=== PATIENT | male | born 1970 | race Caucasian/White ===

== ENCOUNTER 2024-09-21 21:29 | Inpatient (IN) | payer MEDICAID ==
[~2024-09-21] VITALS: Ht 180.3 cm; Wt 104.5 kg
[2024-09-21 21:55] LABS: BASOPHILS % (AUTO) 0.6 % (0-1); EOSINOPHILS % (AUTO) 0 % (0-6); HEMATOCRIT 42.5 % (42.0-52.0); HEMOGLOBIN 14.9 g/dl (14.0-17.9); LYMPHOCYTES # (AUTO) 0.8 X10'3 (1.1-4.8); LYMPHOCYTES % (AUTO) 14.5 % (21-51); MEAN CORPUSCULAR HEMOGLOBIN 29.6 PG (27.0-31.0); MEAN CORPUSCULAR VOLUME 84.6 FL (78-98); MONOCYTES # (AUTO) 0.7 X10'3 (0-0.9); NEUTROPHILS # (AUTO) 4.2 X10'3 (1.8-7.7); NEUTROPHILS % (AUTO) 72.9 % (42-75); PLATELET COUNT 207 X10'3 (140-440); RED BLOOD COUNT 5.03 X10'6 (4.70-6.10); RED CELL DISTRIBUTION WIDTH 13.7 % (11.5-14.5); WHITE BLOOD COUNT 5.8 X10'3 (4.5-11.0)
[2024-09-21] MEDS: ipratropium/albuterol 3ml nebule NEB ONE (22:12)
[2024-09-21 22:14] VITALS: PULSE 117; RESP 20; O2SAT 93
[2024-09-21 22:15] LABS: ALANINE AMINOTRANSFERASE 42 U/L (12-78); ALBUMIN 3.9 G/DL (3.4-5.0); ALBUMIN/GLOBULIN RATIO 0.8 (1.1-1.5); ALKALINE PHOSPHATASE 71 IU/L (46-116); ANION GAP 13 (8-16); ASPARTATE AMINO TRANSFERASE 42 U/L (10-37); BILIRUBIN,TOTAL 1.2 MG/DL (0.1-1.0); BLOOD UREA NITROGEN 14 MG/DL (7-18); BUN/CREATININE RATIO 13.1 (10.0-20.0); CHLORIDE 101 MMOL/L (99-107); CREATININE 1.07 MG/DL (0.60-1.10); GLUCOSE 130 MG/DL (70-104); POTASSIUM 3.4 MMOL/L (3.5-5.1); SODIUM 139 MMOL/L (135-145); TOTAL CARBON DIOXIDE 25.1 MMOL/L (24-32); TOTAL PROTEIN 8.9 G/DL (6.4-8.2); eCRCL 83 ML/MIN; eGFR 72 ML/MIN
[2024-09-21] MEDS ORDERED: ondansetron 4mg rapidly disintigrating tab PO ONE (22:15)
[2024-09-21 22:21] VITALS: PULSE 121; RESP 20; O2SAT 94
[2024-09-21 22:21] LABS: PRO BRAIN NATRIURETIC PEPTIDE 38 PG/ML (0-125)
[2024-09-21] MEDS ORDERED: proCHLORperazine 10 MG/2 ml inj IV ONE (23:20)
[2024-09-21] MEDS ORDERED: ONDA-245 PO (23:40)
[2024-09-21] MEDS: acetaminophen 325mg tablet PO ONE (23:58)
[2024-09-21] MEDS: ondansetron/PF 4mg/2ml inj IV ONE (23:59)
[2024-09-21] MEDS: normal saline 1000ml 1,000 ML IV ONE (23:59)
[2024-09-21] MEDS: ketorolac trometh 15mg/ml vial 15 MG/ML ML IV ONE (23:59)
[2024-09-22] MEDS ORDERED: albuterol 2.5 MG/3 ML nebule NEB PRN (02:10)
[2024-09-22] MEDS ORDERED: mag hydrox/Alum hydrox/simeth 30ml oral suspension PO PRN (02:10)
[2024-09-22] MEDS ORDERED: magnesium Cl slow-release 64mg tablet PO PRN ×2 (02:10→04:45)
[2024-09-22] MEDS ORDERED: magnesium sulf-water 4G/100mL 100 ML IV PRN ×2 (02:10→04:45)
[2024-09-22] MEDS ORDERED: magnesium hydroxide 30ml (MOM) UD suspension PO PRN (02:10)
[2024-09-22] MEDS ORDERED: acetaminophen 325mg tablet PO PRN (02:10)
[2024-09-22] MEDS ORDERED: magnesium sulf-water 2g/50mL 50 ML IV PRN ×2 (02:10→04:45)
[2024-09-22] MEDS ORDERED: potassium Cl 20 mEq SR tablet PO PRN ×3 (02:10→04:45)
[2024-09-22] MEDS ORDERED: potassium Cl 40MEQ/1/2NS 520ml 520 ML IV PRN ×2 (02:10→04:45)
[2024-09-22] MEDS ORDERED: NO HOME MEDS (02:14)
[2024-09-22] MEDS: normal saline 1000ml 1,000 ML IV SCH (02:54)
[2024-09-22] MEDS: CefTRIAXone/D5W-Rocephin 1gm 50 ML IV SCH (02:56)
[2024-09-22 03:11] LABS: BILIRUBIN,URINE SMALL (Neg); CLARITY,URINE CLEAR (Clear); COLOR,URINE YELLOW (Yellow); GLUCOSE, URINE NEGATIVE (Neg); KETONES,URINE 40 mg/dl (Neg); LEUKOCYTE ESTERASE ,URINE NEGATIVE (Neg); NITRITES, URINE NEGATIVE (Neg); OCCULT BLOOD,URINE NEGATIVE (Neg); PROTEIN,URINE >=300 mg/dl (Neg)
[2024-09-22 03:19] LABS: UA COLLECTION TYPE VOIDED
[2024-09-22 03:20] LABS: BACTERIA,URINE 1+ /HPF (Neg); RBC,URINE NONE SEEN /HPF (0-2); SQUAMOUS EPITHELIAL CELL,UR FEW /LPF (FEW); TRANSITIONAL EPI CELLS,URINE MANY /HPF; WBC,URINE 0-4 /HPF (0-4)
[2024-09-22 04:01] LABS: HEMOGLOBIN A1C 6.1 % (4.5-6.2)
[2024-09-22 04:09] LABS: MAGNESIUM 1.8 MG/DL (1.5-2.4); POTASSIUM 3.1 MMOL/L (3.5-5.1)
[2024-09-22] MEDS ORDERED: phenylephrine 1% (X-tra strg) 15ml nasal spray NS PRN (04:25)
[2024-09-22] MEDS ORDERED: guaiFENesin/DM 10ml UD oral syrup PO PRN (04:45)
[2024-09-22] MEDS: K and/or MAG REPLACEMENT MC SCH ×2 (08:00)
[2024-09-22] MEDS ORDERED: enoxaparin 30mg/0.3ml syringe SUBCUT SCH (08:00)
[2024-09-22] MEDS ORDERED: enoxaparin 40mg/0.4ml syringe SUBCUT SCH (08:51)
[2024-09-22] MEDS: docusate sod 100mg capsule PO SCH (09:20)
[2024-09-22] MEDS: enoxaparin 40mg/0.4ml syringe SUBCUT SCH (09:24)
[2024-09-22 09:44] VITALS: RESP 18; O2SAT 93
[2024-09-22 09:55] VITALS: BP 170/98; PULSE 62; RESP 22; TEMP 97.7; O2SAT 93
[2024-09-22 10:00] VITALS: BP 154/127; PULSE 86; RESP 20; TEMP 97.7; O2SAT 98
[2024-09-22] MEDS: potassium Cl 20 mEq SR tablet PO PRN (10:22)
[2024-09-22] MEDS: losartan 50mg tablet PO SCH (11:51)
[2024-09-22] MEDS: amLODIPine 5mg tablet PO SCH (11:51)
[2024-09-22 18:00] VITALS: BP 156/90; PULSE 81; RESP 20; TEMP 99.1; O2SAT 92
[2024-09-22 20:00] VITALS: RESP 16; O2SAT 95
[2024-09-22 22:00] VITALS: BP 165/98; PULSE 77; RESP 20; TEMP 98.8; O2SAT 92
[2024-09-23] VITALS (10 sets, daily range): BP systolic 113–192; BP diastolic 75–115; PULSE 58–76; RESP 17–20; TEMP 97.1–98; O2SAT 93–97
[2024-09-23] MEDS: ondansetron/PF 4mg/2ml inj IV PRN (02:44)
[2024-09-23] MEDS: hydrALAZINE 20mg/ml inj. IV PRN (03:11)
[2024-09-23 04:50] LABS: BASOPHILS % (AUTO) 0.3 % (0-1); EOSINOPHILS % (AUTO) 0.2 % (0-6); HEMATOCRIT 39.6 % (42.0-52.0); HEMOGLOBIN 13.9 g/dl (14.0-17.9); LYMPHOCYTES # (AUTO) 1.6 X10'3 (1.1-4.8); LYMPHOCYTES % (AUTO) 25.6 % (21-51); MEAN CORPUSCULAR HGB CONC 35.1 g/dL (33.0-36.5); MEAN CORPUSCULAR VOLUME 85.6 FL (78-98); MEAN PLATELET VOLUME 7.2 FL (7.4-10.4); MONOCYTES # (AUTO) 0.7 X10'3 (0-0.9); MONOCYTES % (AUTO) 12.2 % (2-12); NEUTROPHILS # (AUTO) 3.8 X10'3 (1.8-7.7); NEUTROPHILS % (AUTO) 61.7 % (42-75); PLATELET COUNT 174 X10'3 (140-440); RED BLOOD COUNT 4.63 X10'6 (4.70-6.10); RED CELL DISTRIBUTION WIDTH 13.7 % (11.5-14.5); WHITE BLOOD COUNT 6.1 X10'3 (4.5-11.0)
[2024-09-23 05:08] LABS: ALBUMIN 3.4 G/DL (3.4-5.0); ANION GAP 9 (8-16); BLOOD UREA NITROGEN 11 MG/DL (7-18); BUN/CREATININE RATIO 11.1 (10.0-20.0); CALCIUM 8.6 MG/DL (8.5-10.1); CHLORIDE 103 MMOL/L (99-107); CHOL/HDL RATIO 4.8 (0.00-4.99); CHOLESTEROL 178 MG/DL (0-200); CREATININE 0.99 MG/DL (0.60-1.10); GLUCOSE 112 MG/DL (70-104); HDL CHOLESTEROL 37 MG/DL (35-60); SODIUM 141 MMOL/L (135-145); TOTAL CARBON DIOXIDE 28.8 MMOL/L (24-32); TRIGLYCERIDES 171 MG/DL (20-135); eCRCL 90 ML/MIN; eGFR 78 ML/MIN
[2024-09-23 05:10] LABS: LDL CHOLESTEROL 116 MG/DL (50-100)
[2024-09-23] MEDS: amLODIPine 5mg tablet PO ONE (10:47)
[2024-09-23] MEDS: cloNIDine 0.1 mg tablet PO PRN (13:17)
[2024-09-23] MEDS ORDERED: albuterol 2.5 MG/3 ML nebule NEB PRN (15:05)
[2024-09-23] MEDS ORDERED: cloNIDine 0.1 mg tablet PO PRN (16:50)
[2024-09-23] MEDS: budesonide 0.5mg/2ml UD nebule IH SCH (19:36)
[2024-09-24 03:27] VITALS: O2SAT 94
[2024-09-24 04:58] LABS: BASOPHILS % (AUTO) 0.5 % (0-1); EOSINOPHILS # (AUTO) 0.1 X10'3 (0-0.9); EOSINOPHILS % (AUTO) 1.3 % (0-6); HEMATOCRIT 35.2 % (42.0-52.0); HEMOGLOBIN 12.3 g/dl (14.0-17.9); LYMPHOCYTES # (AUTO) 1.9 X10'3 (1.1-4.8); LYMPHOCYTES % (AUTO) 34.9 % (21-51); MEAN CORPUSCULAR HEMOGLOBIN 29.6 PG (27.0-31.0); MEAN CORPUSCULAR HGB CONC 34.9 g/dL (33.0-36.5); MEAN CORPUSCULAR VOLUME 84.9 FL (78-98); MEAN PLATELET VOLUME 7.5 FL (7.4-10.4); MONOCYTES # (AUTO) 0.9 X10'3 (0-0.9); MONOCYTES % (AUTO) 15.5 % (2-12); NEUTROPHILS # (AUTO) 2.6 X10'3 (1.8-7.7); NEUTROPHILS % (AUTO) 47.8 % (42-75); PLATELET COUNT 158 X10'3 (140-440); RED BLOOD COUNT 4.15 X10'6 (4.70-6.10); RED CELL DISTRIBUTION WIDTH 13.4 % (11.5-14.5); WHITE BLOOD COUNT 5.5 X10'3 (4.5-11.0)
[2024-09-24 05:11] LABS: ANION GAP 7 (8-16); BLOOD UREA NITROGEN 16 MG/DL (7-18); BUN/CREATININE RATIO 15.7 (10.0-20.0); CALCIUM 8.6 MG/DL (8.5-10.1); CHLORIDE 104 MMOL/L (99-107); CREATININE 1.02 MG/DL (0.60-1.10); GLUCOSE 98 MG/DL (70-104); POTASSIUM 4.1 MMOL/L (3.5-5.1); SODIUM 140 MMOL/L (135-145); TOTAL CARBON DIOXIDE 29.2 MMOL/L (24-32); eCRCL 87 ML/MIN; eGFR 76 ML/MIN
[2024-09-24] MEDS: acetaminophen 325mg tablet PO PRN (05:48)
[2024-09-24 06:00] VITALS: BP 167/98; PULSE 63; RESP 24; TEMP 97.8; O2SAT 96
[2024-09-24 09:30] VITALS: BP 149/86; PULSE 65
[2024-09-24 09:39] VITALS: BP_SYST 149; PULSE 65
[2024-09-24] MEDS: atorvastatin 20mg tablet PO SCH (09:39)
[2024-09-24] MEDS: amLODIPine 5mg tablet PO SCH (09:39)
[2024-09-24] MEDS ORDERED: ATOR20TA66 PO (10:55)
[2024-09-24] MEDS ORDERED: ALBU90AE INH (10:55)
[2024-09-24] MEDS ORDERED: AMLO10TA PO (10:55)
[2024-09-24] MEDS ORDERED: LOSA50TA64 PO (10:55)
== END 2024-09-24 15:52 | disposition home or self-care (01) | DRG 113 ==
LOC: ER 21:30 → EDBD 21:30 → ED HOLD 09-22 02:17 → SUR 3N 09-22 07:15
PROVIDERS: ADMIT Internal Medicine Critical Care Medicine; ATTEND Internal Medicine
DX: J10.1 Influenza due to other identified influenza virus with other respiratory manifestations (principal); J96.01 Acute respiratory failure with hypoxia; R65.10 Systemic inflammatory response syndrome (SIRS) of non-infectious origin without acute organ dysfunction; J45.901 Unspecified asthma with (acute) exacerbation; Z20.822 Contact with and (suspected) exposure to COVID-19; E78.00 Pure hypercholesterolemia, unspecified; E87.6 Hypokalemia; I16.0 Hypertensive urgency; I10 Essential (primary) hypertension; Z79.899 Other long term (current) drug therapy
CPT/HCPCS: 36415; 71045; 80048; 80053; 80061; 81001; 83036; 83735; 83880; 84132; 84145; 84484; 85025; 87081; 87502; 87503; 87811; 93005; 94640; 94760; 96374; 96375; 99285; G0378; J0360; J0696; J1650; J1885; J2405; J7030

== ENCOUNTER 2025-07-11 15:21 | Emergency (ER) | payer MEDICAID, OTHER ==
[~2025-07-11] VITALS: Ht 180.3 cm; Wt 112.0 kg
[~2025-07-11 15:21] MED LIST: ALBU90AE INH; AMLO10TA PO; ATOR20TA66 PO; LOSA50TA64 PO
[2025-07-11 15:24] VITALS: BP 115/57; PULSE 70; O2SAT 99
[2025-07-11] MEDS ORDERED: CYCL-394 PO (17:21)
--- NOTE | 2025-07-11 17:24 | Physician Documentation ---
History of Present Illness ~ Chief Complaint: Neck pain Stated Complaint: NECK INJURY/WC Time Seen by MD: 17:00 HPI 54-year-old male presents to the ED with a complaint of neck pain after being struck by basketball at work yesterday. States some a basketball was and a low rate of speed and that the ball just caught him unexpectedly which has led to neck pain. Has not any numbness or tingling or headaches reports pain with range of motion .denies any loss of consciousness or like sensitive Medication Reconciliation Allergies: Coded Allergies: No Known Allergies (Unverified , 09/21/24) Scheduled Amlodipine Besylate (Amlodipine Besylate), 1 TABLET PO DAILY Atorvastatin Calcium (Atorvastatin Calcium), 20 MG PO DAILY Cyclobenzaprine HCl (Cyclobenzaprine HCl), 1 TAB PO HS Losartan Potassium (Losartan Potassium), 50 MG PO DAILY Scheduled PRN Albuterol Sulfate (Proair Respiclick), 2 PUFFS INH Q4HPRN PRN for shortness of breath Past Medical History Patient History: FH: diabetes mellitus MOTHER FH: heart disease FATHER FH: leukemia FATHER Review of Systems All Other Systems at this time: Reviewed and Negative ROS As stated above in the HPI, otherwise all systems are reviewed and negative. Physical Exam Vital Signs: Temperature: 98.2, Source: Temporal, Heart Rate: 70, Respiratory Rate: 16, BP: 115/57, Pulse Oximetry: 99, Weight: 112.000 Oxygen Flow Rate: 0 Physical Exam General: Alert, no apparent distress. Neck: Slightly reduced range of motion secondary to pain Neurologic: Oriented x4. Psychiatric: Normal mood and affect. Skin: Normal color, warm and dry. No edema, no ecchymosis. Progress Results/Orders Results/Orders Orders - LUIS VO NP [facility] (07/11/25 17:27) Completed Orders - LUIS VO NP [facility] (07/11/25 17:27) Ketorolac Trometh 30mg/Ml Vial (Toradol (07/11/25 17:20) Medications Received in ER Medications (Trade) Dose Ordered Sig/Jaret Route PRN Reason Start Time Stop Time Status Last Admin Dose Admin (Toradol inj. 30mg/ml) 30 mg ONCE ONCE IM 07/11/25 17:20 07/11/25 17:21 DC 10/6/25 17:38 30 MG Vital Signs 07/11/25 07/11/25 15:24 17:38 Temp 98.2 Pulse 70 Resp 16 16 B/P (MAP) 115/57 Pulse Ox 99 O2 Flow Rate 0 Medical Decision Making Findings I did not appreciate any signs of acute fracture and patient's cervical x-ray. I am highly suspicious of the cervical strain secondary to being struck by a basketball from the posterior her I discussed these findings with the patient. I am currently recommending rest muscle relaxers and ibuprofen Differential Dx:Considerations: Include: Cervical muscle spasm, Discitis, DJD, Meningitis, Thyroiditis, Torticollis, Vertebral artery dissect., Other Departure Disposition: HOME / SELF CARE / HOMELESS Impression: Primary Impression: Strain of neck muscle Referrals: NO PRIMARY CARE PROVIDER (PCP) Prescriptions Cyclobenzaprine HCl (Cyclobenzaprine HCl) 10 Mg Tablet 1 TAB PO HS for muscle spasms for 30 Days, #30 TAB Prov: LUIS VO NP 07/11/25 Signature Scribe Signature: j Attestation: Scribed for Luis Vo Rn Neonatal Icu by Luis Londono NP . 07/11/25 17:21 LUIS VO NP Jul 11, 2025 17:24
[2025-07-11 17:38] VITALS: RESP 16
[2025-07-11] MEDS: ketorolac trometh 30MG/ML vial 30 MG/ML VIAL IM ONE (17:38)
--- NOTE | 2025-07-11 17:40 | RADIOLOGY REPORT ---
INDICATION: neck injury TECHNIQUE: 5 views of the cervical spine were obtained. COMPARISON: None FINDINGS: The cervical spine is visualized from C1- C6. There is loss of the normal cervical lordosis which can be positional. No fractures or subluxations are identified. Multilevel degenerative changes of the spine Alignment appears unremarkable. Prevertebral soft tissues are within normal limits. IMPRESSION: No acute fracture or subluxation
[2025-07-11] MEDS ORDERED: AMLO10TA PO (17:54)
[2025-07-11 18:10] VITALS: TEMP 98.2
== END 2025-07-11 18:11 | disposition home or self-care (01) ==
LOC: ER 15:22
DX: S16.1XXA Strain of muscle, fascia and tendon at neck level, initial encounter (principal); Z79.899 Other long term (current) drug therapy; W21.05XA Struck by basketball, initial encounter; Y93.89 Activity, other specified; Y92.89 Other specified places as the place of occurrence of the external cause; Y99.8 Other external cause status
CPT/HCPCS: 72040; 96372; 99283; J1885